=== PATIENT | female | born 2000 | race Caucasian/White ===

== ENCOUNTER 2024-08-11 15:48 | Inpatient (IN) | payer BC, MEDICAID ==
[2024-08-11] VITALS (17 sets, daily range): BP systolic 123–138; BP diastolic 67–88; PULSE 83–105; TEMP 97.8–98.3
[~2024-08-11] VITALS: Ht 162.6 cm; Wt 130.9 kg
[2024-08-11] MEDS ORDERED: PRENATAL TABLET PO (16:21)
[2024-08-11] MEDS ORDERED: MELATONIN5 M1 SL (16:22)
[2024-08-11] MEDS ORDERED: LR 1,000 ML IV PRN (16:30)
--- NOTE | 2024-08-11 16:38 | NUR ---
Pt arrives ambulatory with boyfriend and his mother at 1600, changes into gown, EFM explained and placed, VS taken. Pt reports contractions starting last night, becoming closer together and stronger around 03-0400 this morning, so much that she was vomiting with contractions. Pt states last check in office was , membrane sweep done. Pt unsure if leaking fluid, denies vaginal bleeding, reports good movement. Amnitest swab negative. SVE with permission 3. Assessment done, plan for labor check discussed with pt, pt verbalizes understanding and agreement. Dr. Davis notified.
--- NOTE | 2024-08-11 17:30 | NUR ---
SVE unchanged. FHR cat 1, baseline 140, until 1659, then variable like drop to 120s for about 2 mins, then slow increase to baseline. Late decel with next contraction, then contraction at 1710 has FHR pattern same as that at 1659. Dr. Davis notified, could not view strip, orders for IV and 1L LR, monitor for another hour.
[2024-08-11] MEDS ORDERED: LR 1,000 ML IV SCH (19:00)
[2024-08-11] MEDS ORDERED: LR & Oxytocin 500 ML IV SCH (20:00)
--- NOTE | 2024-08-11 20:00 | NUR ---
CONSENTS SIGNED. PITOCIN STARTED AT 2 MU V[address] PUMP PER [address] YI ORDERS. I WILL BE TURNING IT UP BY 2 MU EVERY HOUR.
--- NOTE | 2024-08-11 21:31 | NUR ---
UP TO BR 2131 DR SPARKS CALLED IN FOR UPDATE. INFORMED OF BABY JUST HAD TWO VARIABLE/LATE LOOKING DECELS WITH SLOW RETURN TO BASELINE WITH CONTRACTIONS. THE NEXT CONTRACTION THERE WAS NO DECEL, THEN PT GOT UP TO BR TO VOID. THERE ARE VARIABLE DECELS OCCURING. MODERATE VARIBILITY. PITOCIN IS AT 4 MU. WILL CONTINUE TO MONITOR AND KEEP HER UPDATED. 2137 JONATHAN CARNEY CRNA CALLED TO INFORM OF PT HERE AND STRIP ASSESSMENT.
[2024-08-12] VITALS (82 sets, daily range): BP systolic 15–151; BP diastolic 55–89; PULSE 56–113; TEMP 98.2–98.7
--- NOTE | 2024-08-12 00:45 | NUR ---
DR SPARKS GIVEN UPDATE ON PT AND FHR STATUS. BABY CONTINUES TO HAVE VARIABLES. OCCASSIONAL LATE WITH SLOW RETURN. THEY ARE NOT CONSISTENT. PT STATES SHE IS HAVING MORE BACK PAIN BUT SHE IS DOING FINE SO FAR AND IS NOT REQUESTING AN EPIDURAL YET. WILL CONTINUE TO MONITOR AND KEEP DR SPARKS UPDATED.
--- NOTE | 2024-08-12 05:00 | NUR ---
PT SLEEPING AT THIS TIME.
[2024-08-12 05:12] LABS: BASO % 0.3 % (0.0-2.0); EOS # 0.1 K/mm3 (0.0-0.7); EOS % 0.6 % (0.0-4.0); GRAN # 8.6 K/mm3 (1.4-6.5); GRAN % 74.6 % (42.2-75.2); HEMATOCRIT 38.3 % (37.0-47.0); HEMOGLOBIN 11.9 g/dl (12.5-16.0); LYMPH # 1.8 K/mm3 (1.2-3.4); MEAN CELL VOLUME 85 fl (80.0-100.0); MEAN CORPUSCULAR HEMOGLOBIN 27 pg (27-31); MEAN CORPUSCULAR HGB CONC 31 g/dl (33.0-37.0); MEAN PLATELET VOLUME 10.2 fl (7.4-10.4); MONO # 0.8 K/mm3 (0.1-0.6); MONO % 7.1 % (1.7-9.3); PLATELET COUNT 244 K/mm3 (130-400); RED BLOOD COUNT 4.49 M/mm3 (4.10-5.30); REDCELL DISTRIBUTION WIDTH-CV 13.9 % (11.5-14.5)
--- NOTE | 2024-08-12 05:55 | NUR ---
PT UP TO AMB TO BR TO VOID.
--- NOTE | 2024-08-12 06:15 | NUR ---
PT REQUESTING EPIDURAL NOW. SHE STATES THE UC'S ARE GETTING STRONGER. IV BOLUS STARTED.
[2024-08-12] MEDS ORDERED: ROPivacaine PF 0.2% 200 ML IV ONE (06:36)
--- NOTE | 2024-08-12 06:56 | NUR ---
0641- JONATHAN AT BEDSIDE TO PLACE EPIDURAL. PT SEATED AT BEDSIDE. PB AND O2 MONITORS PLACED. JONATHAN TALKED WITH PT ABOUT RISKS. PT AGREES TO EPIDURAL. DIFFICULTY TRACING FHT DURRING THIS TIME. 0656- TEST DOSE. PT REPOSITIONED TO WEDGE LEFT. FHT NOW TRACEABLE.
[2024-08-12] MEDS ORDERED: Ondansetron 4 MG/2 ML VIAL IV PRN ×3 (07:15→20:45)
[2024-08-12] MEDS ORDERED: diphenhydrAMINE 50 MG/ML 1 ML VIAL IV PRN (07:15)
[2024-08-12] MEDS ORDERED: Naloxone 0.4 MG/ML VIAL IV PRN ×2 (07:15→19:15)
[2024-08-12] MEDS ORDERED: ePHEDrine 50 MG/10 ML VIAL IV PRN (07:15)
[2024-08-12] MEDS ORDERED: diphenhydrAMINE 25 MG CAP PO PRN (07:15)
--- NOTE | 2024-08-12 13:45 | NUR ---
1345- DR LOPEZ AT BEDSIDE ASSESSING PT. SVE /-1. DR LOPEZ GAVE A VERBAL ORDER TO INCREASE PITOCIN.
--- NOTE | 2024-08-12 19:00 | NUR ---
DR LOPEZ HERE, SVE NO CHANGE IN CERVIX. DISCUSSED WITH PT AND HER FAMILY A C/S. PT AGREED. C/S CALLED. OR TEAM NOTIFIED, JONATHAN CARNEY CRNA NOTIFIED.
[2024-08-12] MEDS ORDERED: Chloroprocaine PF 3% (30 MG/ML) 20 ML VIAL ONE (19:02)
[2024-08-12] MEDS ORDERED: Acetaminophen 500 MG TAB PO PRN (19:15)
[2024-08-12] MEDS ORDERED: Loratadine 10 MG TAB PO PRN (19:15)
[2024-08-12] MEDS ORDERED: Magnes Hydrox (MOM) 80 MG/ML 30 ML CUP PO PRN (19:15)
[2024-08-12] MEDS ORDERED: LR 1,000 ML IV PRN (19:15)
[2024-08-12] MEDS ORDERED: oxyCODONE 5 MG TAB PO PRN (19:15)
[2024-08-12] MEDS ORDERED: Measles/Mumps/Rubella Virus Vaccine Live w Diluent 0.5 ML VIAL SQ SCH (19:15)
[2024-08-12] MEDS ORDERED: Azithromycin 500 MG in NS 250 ML IV ONE (19:15)
[2024-08-12] MEDS ORDERED: Tdap Vaccine 0.5 ML SYRINGE IM SCH (19:15)
[2024-08-12] MEDS ORDERED: Tranexamic Acid 1,000 MG in NS 100 ML IV ONE (19:15)
--- NOTE | 2024-08-12 19:15 | NUR ---
ABD CLIPPED AND PREPPED WITH HIBICLEANSE. ESCOBAR CATH EMPITIED OF 1425 CC URINE. 1907 IUPC WAS REMOVED. 1919 FSE WAS REMOVED WITH TIP IN TACK.
--- NOTE | 2024-08-12 19:20 | NUR ---
1922 PT TRANSFERED TO OR VIA BED FOR C/S.
[2024-08-12] MEDS ORDERED: Oxytocin 10 UNITS/ML VIAL ONE (19:31)
[2024-08-12] MEDS ORDERED: fentaNYL 50 MCG/ML 2 ML VIAL ONE ×2 (19:31→19:38)
[2024-08-12] MEDS ORDERED: NS 20 ML IV ONE (19:31)
[2024-08-12] MEDS ORDERED: Ondansetron 4 MG/2 ML VIAL ONE (19:37)
[2024-08-12] MEDS ORDERED: Ketorolac 30 MG/ML VIAL ONE (19:37)
[2024-08-12] MEDS ORDERED: Morphine 2 MG/1 ML VIAL [PACU/SDC ONLY] IV PRN (20:45)
[2024-08-12] MEDS ORDERED: traZODone 50 MG TAB PO PRN (21:00)
[2024-08-13 01:00] VITALS: BP 128/73; PULSE 84
[2024-08-13] MEDS ORDERED: Ibuprofen 800 MG TAB PO SCH (01:15)
[2024-08-13 05:15] VITALS: BP 130/78; PULSE 82; TEMP 98.4
--- NOTE | 2024-08-13 06:20 | NUR ---
RN AT BEDSIDE. BABY NOT LATCHED YET, RN INFORMED PT THAT SINCE BABY HAS NOT EATEN SINCE 2330, SHE NEEDS TO WAKE BABY UP AND FEED HIM. PT STATED "HE ATE FOR AN HOUR AT 2330 AND THEN THEY SAID HE JUST WANTED TO SLEEP ALL NIGHT." RN TOLD PT THAT BABY NEEDS HELP WAKING UP AND TO FEED EVERY 2-3 HOURS. PT SAID "OK"
[2024-08-13 08:00] VITALS: BP 129/70; PULSE 82; TEMP 97.7
[2024-08-13] MEDS ORDERED: Sennosides/Docusate 8.6-50 MG TAB PO SCH (08:00)
--- NOTE | 2024-08-13 09:41 | NUR ---
Initial visit; Parents thanked [employer] Waste Facility Operator for offering congratulations and God's blessings for the of their son. Solid Waste Facility Operator thanked family for choosing [facility].
[2024-08-13 17:02] VITALS: BP 124/63; PULSE 97; TEMP 97.9
[2024-08-13 20:00] VITALS: BP 129/69; PULSE 78; TEMP 98.4
[2024-08-14 08:30] VITALS: BP 123/68; PULSE 91; TEMP 98.4
[2024-08-14] MEDS ORDERED: ROXICODONE 55 MG/TAB PO (09:20)
[2024-08-14] MEDS ORDERED: IBU800 M1 PO (09:20)
[2024-08-14] MEDS ORDERED: TYLENOL 500MG500 MG PO (09:20)
[2024-08-14] MEDS ORDERED: Influenza Virus Vaccine, Trivalent '24-25 0.5 ML ONCE TODAY IM ONE ×2 (10:30→14:00)
== END 2024-08-14 15:00 | disposition home or self-care (01) | DRG 788 ==
LOC: LDRO 15:48 → LDR 16:26 → LDRO 18:49 → LDR 18:50 → OB 18:50
PROVIDERS: Student in an Organized Health Care Education/Training Program; ADMIT Obstetrics & Gynecology
PROC: 10D00Z1 Extraction of Products of Conception, Low, Open Approach (ICD-10-PCS; principal; 2024-08-12)
PROC: 3E033VJ Introduction of Other Hormone into Peripheral Vein, Percutaneous Approach (ICD-10-PCS; 2024-08-12)
DX: O99.214 Obesity complicating childbirth (principal); Z3A.39 39 weeks gestation of pregnancy; Z37.0 Single live birth; O76 Abnormality in fetal heart rate and rhythm complicating labor and delivery; O62.0 Primary inadequate contractions; Z88.0 Allergy status to penicillin; Z86.16 Personal history of COVID-19
CPT/HCPCS: J0456; J0665; J0690; J1885; J2401; J2405; J2590; J2795; J3010; J7050; J7120